=== PATIENT | female | born 1965 ===

== ENCOUNTER 2017-07-31 21:54 | Emergency (ER) | payer OTHER ==
[2017-07-31 22:09] VITALS: RESP 20; TEMP 98
[2017-07-31] MEDS ORDERED: Lidocaine 1% w Epi 1:100,000 Inj INJ ONE (22:34)
[2017-07-31] MEDS ORDERED: Bacitracin 500 Units/gm Oint Foilpak UD TOP ONE (22:34)
[2017-07-31] MEDS ORDERED: Lidocaine 2% w Epi 1:100,000 Inj IJ ONE (22:41)
[2017-07-31] MEDS ORDERED: Bacitracin 500 Units/gm Oint Foilpak UD ONE (22:41)
[2017-07-31] MEDS ORDERED: Amoxicillin-Clav 875-125 mg Tab PO STA (23:01)
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
[2017-07-31] MEDS ORDERED: Amoxicillin-Clav 875-125 mg Tab PO ONE (23:04)
[2017-07-31 23:18] VITALS: BP 143/86; PULSE 94
[2017-07-31 23:35] VITALS: O2SAT 99
== END 2017-07-31 23:22 | disposition home or self-care (01) ==
LOC: C.ER 21:54
DX: S61.452A Open bite of left hand, initial encounter (principal); Y04.1XXA Assault by human bite, initial encounter; Z23 Encounter for immunization